=== PATIENT | male | born 1970 | race Caucasian/White ===

== ENCOUNTER 2018-11-12 09:53 | Outpatient (CLI) | payer OTHER ==
[2018-11-12] MEDS ORDERED: BENA1TAB9 PO (10:44)
[2018-11-12] MEDS ORDERED: DILT240C77 PO (10:44)
[2018-11-12 10:46] LABS: BASOPHILS # (AUTO) 0.05 x10^3/uL (0-0.1); BASOPHILS % (AUTO) 1 % (0-1); EOSINOPHILS # (AUTO) 0.32 x10^3/uL (0-0.4); EOSINOPHILS % (AUTO) 6 % (1-7); LYMPHOCYTES # (AUTO) 1.34 x10^3/uL (1-3.4); LYMPHOCYTES % (AUTO) 24 % (22-44); MD NO; MEAN CORPUSCULAR HEMOGLOBIN 28.7 pg (27.5-34.5); MEAN CORPUSCULAR HGB CONC 32.9 g/dL (33.2-36.2); MEAN PLATELET VOLUME 7.9 fL (7.4-10.4); MONOCYTES # (AUTO) 0.47 x10^3/uL (0.2-0.8); MONOCYTES % (AUTO) 8 % (2-9); NEUTROPHILS % (AUTO) 61 % (42-75); PLATELET COUNT 319 x10^3/uL (130-400); RED BLOOD COUNT 5.44 x10^6/uL (4.38-5.82); RED CELL DISTRIBUTION WIDTH 13.5 % (9.4-14.8)
[2018-11-12 10:57] LABS: CALCIUM 9.3 mg/dL (8.5-10.1); CHLORIDE 107 mmol/L (98-107)
[2018-11-12 11:00] LABS: ALANINE AMINOTRANSFERASE 41 U/L (12-78); ALKALINE PHOSPHATASE 62 U/L (45-117); BILIRUBIN,TOTAL 0.4 mg/dL (0.2-1.0); CREATININE 0.96 mg/dL (0.7-1.3); TOTAL PROTEIN 7.9 g/dL (6.4-8.2)
[2018-11-12 11:05] LABS: ANION GAP 5 mmol/L (5-15)
== END 2018-11-12 23:59 | disposition home or self-care (01) ==
LOC: STAR 09:53 → EDSEX 09:53 → STAR 23:59
PROVIDERS: ATTEND Internal Medicine Cardiovascular Disease
DX: I49.3 Ventricular premature depolarization (principal); I47.2 Ventricular tachycardia
CPT/HCPCS: 36415; 71046; 80053; 85025

== ENCOUNTER 2018-11-16 06:17 | Day surgery (SDC) | payer OTHER ==
[2018-11-12 10:30] VITALS: BP 140/92
[~2018-11-16] VITALS: Ht 180.3 cm; Wt 79.5 kg
[~2018-11-16 06:17] MED LIST: BENA1TAB9 PO; DILT240C77 PO
[2018-11-16] MEDS ORDERED: SODIUM CHLORIDE 0.9% 1,000 ML IV SCH (06:28)
[2018-11-16] MEDS ORDERED: LIDOCAINE 1%, 20ML ONE (07:02)
[2018-11-16] MEDS ORDERED: FENTANYL PF 250 MCG/5ML ONE (07:19)
[2018-11-16] MEDS ORDERED: MIDAZOLAM 1 MG/ML, 5ML ONE (07:19)
[2018-11-16] MEDS ORDERED: ISOPROTERENOL 0.2MG/ML, 5ML ONE (08:22)
[2018-11-17] MEDS ORDERED: DILTIAZEM 240 MG CAP.ER.24H PO SCH (09:00)
[2018-11-17] MEDS ORDERED: BENAZEPRIL 10 MG TABLET PO SCH (09:00)
[2018-11-17] MEDS ORDERED: HYDROCHLOROTHIAZIDE 12.5 MG CAPSULE PO SCH (09:00)
== END 2018-11-16 14:58 | disposition home or self-care (01) ==
LOC: EDSEX → CACL 06:17
PROVIDERS: ATTEND Internal Medicine Cardiovascular Disease
DX: I47.2 Ventricular tachycardia (principal); I10 Essential (primary) hypertension
CPT/HCPCS: 93623; 93654; 99156; 99157; C1730; C1894; C2630; J2250; J3010

== ENCOUNTER → 2019-02-06 | Outpatient (CLI) | payer OTHER ==
[~2019-02-06] MED LIST changes: +REGADENOSON 0.4 MG/5 ML SYRINGE ONE
== END | disposition home or self-care (01) ==
LOC: CFH 12:26
PROVIDERS: ATTEND Internal Medicine Cardiovascular Disease
DX: I10 Essential (primary) hypertension (principal); R00.2 Palpitations
CPT/HCPCS: 78452; 93017; A9502; J2785

== ENCOUNTER 2019-03-05 00:06 | Emergency (ER) | payer OTHER ==
[~2019-03-05] VITALS: Ht 180.3 cm; Wt 81.7 kg
[~2019-03-05 00:06] MED LIST changes: -REGADENOSON 0.4 MG/5 ML SYRINGE ONE
[2019-03-05 00:08] VITALS: BP 160/110
--- NOTE | 2019-03-05 00:50 | NUR ---
Pt brought to room 14 w/ c/o elevated BP, asymptomatic, denies HAMPTON, blurred vision, or other neuro deficits. Provider assessment complete, to d/c home.
--- NOTE | 2019-03-05 00:55 | NUR ---
Pt stable for discharge to home, new script provided, states home medication, education and referral provided,verbalizes understanding. vitals stable. Pt ambulates w/ steady gait to front lobby.
== END 2019-03-05 00:58 | disposition home or self-care (01) ==
LOC: ED 00:28
DX: I10 Essential (primary) hypertension (principal); Z76.0 Encounter for issue of repeat prescription
CPT/HCPCS: 99283

== ENCOUNTER 2019-12-31 05:49 | Observation (INO) | payer OTHER ==
[~2019-12-31] VITALS: Ht 180.3 cm; Wt 87.0 kg
[2019-12-31] MEDS ORDERED: SODIUM CHLORIDE 0.9% 1,000 ML IV SCH (06:06)
[2019-12-31 06:08] VITALS: BP 123/77
[2019-12-31] MEDS ORDERED: MEXI150C PO (06:19)
[2019-12-31 06:51] LABS: BASOPHILS # (AUTO) 0.09 x10^3/uL (0-0.1); BASOPHILS % (AUTO) 2 % (0-1); EOSINOPHILS # (AUTO) 0.21 x10^3/uL (0-0.4); EOSINOPHILS % (AUTO) 4 % (1-7); LYMPHOCYTES # (AUTO) 1.63 x10^3/uL (1-3.4); LYMPHOCYTES % (AUTO) 29 % (22-44); MD NO; MEAN CORPUSCULAR HGB CONC 33.1 g/dL (33.2-36.2); MEAN CORPUSCULAR VOLUME 87.6 fL (81-97); MEAN PLATELET VOLUME 8.4 fL (7.4-10.4); MONOCYTES # (AUTO) 0.51 x10^3/uL (0.2-0.8); MONOCYTES % (AUTO) 9 % (2-9); NEUTROPHILS % (AUTO) 57 % (42-75); PLATELET COUNT 223 x10^3/uL (130-400); RED BLOOD COUNT 5.52 x10^6/uL (4.38-5.82); RED CELL DISTRIBUTION WIDTH 13.6 % (9.4-14.8)
[2019-12-31 06:59] LABS: ANION GAP 5 mmol/L (5-15); CALCIUM 8.8 mg/dL (8.5-10.1); CHLORIDE 106 mmol/L (98-107); CREATININE 1.15 mg/dL (0.7-1.3)
[2019-12-31] MEDS ORDERED: ADENOSINE 6 MG/2 ML ONE (07:55)
[2019-12-31] MEDS ORDERED: MIDAZOLAM 1 MG/ML, 5ML ONE (07:55)
[2019-12-31] MEDS ORDERED: ISOPROTERENOL 0.2MG/ML, 5ML ONE (07:55)
[2019-12-31] MEDS ORDERED: FENTANYL PF 100 MCG/2ML ONE (07:55)
[2019-12-31] MEDS ORDERED: LIDOCAINE 2%, 20ML ONE (07:55)
[2019-12-31] MEDS ORDERED: HEPARIN 1,000 UNITS/ML, 10ML ONE ×4 (08:58→17:17)
[2019-12-31] MEDS ORDERED: MORPHINE SULFATE 4 MG/ML, 1ML ONE (13:47)
[2019-12-31] MEDS ORDERED: MORPHINE SULFATE 4 MG/ML, 1ML IVPush ONE (14:00)
[2019-12-31] MEDS ORDERED: DEXAMETHASONE 4 MG/ML, 1ML ONE (15:15)
[2019-12-31] MEDS ORDERED: SUCCINYLCHOLINE 20 MG/ML, 10ML ONE (15:15)
[2019-12-31] MEDS ORDERED: MIDAZOLAM 1 MG/ML, 2ML ONE (15:19)
[2019-12-31] MEDS ORDERED: FENTANYL PF 250 MCG/5ML ONE (15:20)
[2019-12-31] MEDS ORDERED: PROPOFOL 10 MG/ML, 20ML ONE (17:17)
[2019-12-31] MEDS ORDERED: ONDANSETRON 2MG/ML, 2ML ONE (18:17)
[2019-12-31] MEDS ORDERED: ROCURONIUM 10MG/ML,5ML ONE (18:17)
[2019-12-31] MEDS ORDERED: OXYcodone 5 MG/5 ML ORAL.SOL UDC PO PRN (18:30)
[2019-12-31] MEDS ORDERED: ONDANSETRON 2MG/ML, 2ML IVPush PRN (18:30)
[2019-12-31] MEDS ORDERED: HYDROmorphone 1 MG/ML, 1ML INJ IVPush PRN (18:30)
[2019-12-31] MEDS ORDERED: PROMETHAZINE 25 MG/ML, 1ML IVPush PRN (18:30)
[2019-12-31] MEDS ORDERED: FENTANYL PF 100 MCG/2ML IV PRN (18:30)
[2019-12-31] MEDS ORDERED: ACETAMINOPHEN 325 MG TABLET PO PRN (18:30)
[2019-12-31] MEDS ORDERED: MEPERIDINE/PF 25MG/0.5ML IVPush PRN (18:30)
[2019-12-31] MEDS ORDERED: APIXABAN 5 MG TABLET ONE (18:52)
[2019-12-31] MEDS: APIXABAN 5 MG TABLET PO SCH (18:56)
[2019-12-31 20:55] VITALS: BP 110/62
[2019-12-31] MEDS: COLCHICINE 0.6 MG CAPSULE PO SCH (21:02)
[2019-12-31 21:03] VITALS: BP 107/62
[2020-01-01 01:46] VITALS: BP 102/54
[2020-01-01 07:20] VITALS: BP 113/73
[2020-01-01] MEDS ORDERED: ACET325T26 PO (08:33)
[2020-01-01] MEDS ORDERED: APIX5TAB PO (08:33)
[2020-01-01] MEDS ORDERED: HYDR12.517 PO (08:33)
[2020-01-01] MEDS ORDERED: COLC0.6C3 PO (08:33)
[2020-01-01] MEDS: COLCHICINE 0.6 MG CAPSULE PO SCH (08:48)
[2020-01-01] MEDS: APIXABAN 5 MG TABLET PO SCH (08:49)
[2020-01-01] MEDS ORDERED: HYDROCHLOROTHIAZIDE 12.5 MG CAPSULE PO SCH (09:00)
[2020-01-01] MEDS ORDERED: BENAZEPRIL 10 MG TABLET PO SCH (09:00)
[2020-01-01] MEDS ORDERED: DILTIAZEM 240 MG CAP.ER.24H PO SCH (09:00)
== END 2020-01-01 11:13 | disposition home or self-care (01) ==
LOC: CACL 05:49 → INTOOBSV 20:10 → 5SO 20:10
PROVIDERS: ADMIT Internal Medicine Cardiovascular Disease; ATTEND Internal Medicine Cardiovascular Disease
DX: I48.0 Paroxysmal atrial fibrillation (principal); I49.3 Ventricular premature depolarization; I10 Essential (primary) hypertension; Z79.899 Other long term (current) drug therapy
CPT/HCPCS: 36415; 71046; 80048; 85025; 85347; 93005; 93306; 93312; 93321; 93325; 93613; 93620; 93621; 93656; 93662; 96374; 99156; 99157; C1730; C1732; C1759; C1766; C1893; C1894; C2630; G0378; J0153; J0330; J1100; J1644; J2250; J2270; J2405; J2704; J3010; J3490

== ENCOUNTER 2020-05-05 06:07 | Observation (INO) | payer OTHER ==
[~2020-05-05] VITALS: Ht 180.3 cm; Wt 84.0 kg
[~2020-05-05 06:07] MED LIST changes: +ACET325T26 PO; +APIX5TAB PO; +COLC0.6C3 PO; +HYDR12.517 PO; +MEXI150C PO
[2020-05-05] MEDS ORDERED: SODIUM CHLORIDE 0.9% 1,000 ML IV SCH (06:19)
[2020-05-05 06:21] VITALS: BP 119/85
[2020-05-05] MEDS ORDERED: DILT120T3 PO (06:34)
[2020-05-05] MEDS ORDERED: FLEC100T PO (06:34)
[2020-05-05 06:58] LABS: BASOPHILS # (AUTO) 0.05 x10^3/uL (0-0.1); BASOPHILS % (AUTO) 1 % (0-1); EOSINOPHILS % (AUTO) 5 % (1-7); LYMPHOCYTES % (AUTO) 27 % (22-44); MD NO; MEAN CORPUSCULAR HEMOGLOBIN 28.2 pg (27.5-34.5); MEAN CORPUSCULAR HGB CONC 32.8 g/dL (33.2-36.2); MEAN PLATELET VOLUME 8.1 fL (7.4-10.4); MONOCYTES # (AUTO) 0.49 x10^3/uL (0.2-0.8); MONOCYTES % (AUTO) 9 % (2-9); NEUTROPHILS % (AUTO) 59 % (42-75); PLATELET COUNT 250 x10^3/uL (130-400); RED BLOOD COUNT 5.73 x10^6/uL (4.38-5.82); RED CELL DISTRIBUTION WIDTH 13.9 % (9.4-14.8)
[2020-05-05 07:06] LABS: ANION GAP 5 mmol/L (5-15); CALCIUM 9.1 mg/dL (8.5-10.1); CHLORIDE 105 mmol/L (98-107); CREATININE 1.09 mg/dL (0.7-1.3)
[2020-05-05] MEDS ORDERED: MIDAZOLAM 1 MG/ML, 2ML ONE (08:21)
[2020-05-05] MEDS ORDERED: FENTANYL PF 100 MCG/2ML ONE (08:22)
[2020-05-05] MEDS ORDERED: ISOPROTERENOL 0.2MG/ML, 5ML ONE (08:22)
[2020-05-05] MEDS ORDERED: LIDOCAINE 1%, 20ML ONE (08:22)
[2020-05-05] MEDS ORDERED: MIDAZOLAM 1 MG/ML, 5ML ONE (09:55)
[2020-05-05] MEDS ORDERED: HEPARIN 1,000 UNITS/ML, 10ML ONE ×2 (09:55→09:56)
[2020-05-05 12:38] VITALS: BP 109/74
[2020-05-05 20:23] VITALS: BP 116/75
[2020-05-06 00:17] VITALS: BP 107/69
[2020-05-06 07:00] VITALS: BP 119/74
[2020-05-06] MEDS ORDERED: BENAZEPRIL 10 MG TABLET PO SCH (09:00)
[2020-05-06] MEDS ORDERED: DILTIAZEM 240 MG CAP.ER.24H PO SCH (09:00)
[2020-05-06] MEDS ORDERED: HYDROCHLOROTHIAZIDE 12.5 MG CAPSULE PO SCH (09:00)
== END 2020-05-06 11:40 | disposition home or self-care (01) ==
LOC: CACL 06:07 → 5SO 11:13 → CACL 12:58 → DCLOUNGE 05-06 11:30
PROVIDERS: ADMIT Internal Medicine Cardiovascular Disease; ATTEND Internal Medicine Cardiovascular Disease
DX: I47.2 Ventricular tachycardia (principal); I49.01 Ventricular fibrillation; I49.3 Ventricular premature depolarization; I48.91 Unspecified atrial fibrillation; I10 Essential (primary) hypertension; F12.10 Cannabis abuse, uncomplicated; Z79.899 Other long term (current) drug therapy
CPT/HCPCS: 36415; 71046; 80048; 85025; 93306; 93623; 93654; 93662; C1732; C1759; C1760; C1894; C2630; G0378; J1644; J2250; J3010; J3490